=== PATIENT | male | born 1990 | race Caucasian/White ===

== ENCOUNTER 2017-10-02 19:17 | Emergency (ER) | payer SELFPAY ==
[~2017-10-02] VITALS: Ht 180.3 cm; Wt 79.7 kg
[2017-10-02] MEDS ORDERED: NAPROSYN500 MG PO (19:50)
[2017-10-02 20:32] VITALS: BP 133/92
== END 2017-10-02 20:38 | disposition home or self-care (01) ==
LOC: EME 19:17
DX: M94.0 Chondrocostal junction syndrome [Tietze] (principal); F17.200 Nicotine dependence, unspecified, uncomplicated
CPT/HCPCS: 71046; 99281; 99283